=== PATIENT | male | born 1945 | race Caucasian/White ===

== ENCOUNTER 2024-03-12 10:27 | Observation (INO) | payer MEDICARE, SELFPAY ==
--- NOTE | ~2024-03-12 | CT_ITS ---
EXAMINATION: CT ABDOMEN AND PELVIS WITHOUT CONTRAST CLINICAL INFORMATION: Flank pain, hematuria. COMPARISON: None available. TECHNIQUE: Multidetector volumetric imaging was performed from the superior aspect of the liver through the pubic symphysis. Sagittal and coronal reformatted images were obtained on the technologist's workstation. This CT examination was performed using dose optimization techniques as appropriate, variously including the following: *Automated exposure control *Adjustment of mA and/or kV according to patient size (this includes techniques or standardized protocols for targeted exams where dose is matched to indication/reason for exam; i.e. extremities or head) *Use of iterative reconstruction technique DLP: 1280 mL mGy-cm FINDINGS: The lack of intravenous contrast limits evaluation of the solid visceral organs including the liver, spleen, pancreas, and kidneys. LUNG BASES: No focal consolidation or pleural effusion. LIVER, GALLBLADDER, AND BILIARY TREE: The liver is normal in size, shape, and attenuation. No focal hepatic lesion or biliary ductal dilatation is present. The gallbladder is unremarkable with no evidence of radiopaque gallstones, gallbladder wall thickening, or obvious pericholecystic inflammatory changes. PANCREAS: Unremarkable. SPLEEN: Unremarkable. ADRENAL GLANDS: Unremarkable. KIDNEYS AND URETERS: Nonobstructive bilateral renal calculi measuring up to 3 mm on the right kidney and up to 7 mm on the left kidney. No hydronephrosis. No perinephric fat stranding. Benign appearing simple fluid attenuating cyst in the upper right kidney measuring 2.2 cm, for which no imaging follow-up is recommended. BLADDER: Hyperdense filling defects layering in the posterior urinary bladder for example measuring 4.2 x 1.6 cm on axial image 73 series 5. No significant perivesical fat stranding. GASTROINTESTINAL TRACT: Nonspecific focal masslike abnormality in the rectosigmoid junction (5:66). Trace hiatal hernia. The stomach and small bowel are nondilated. Colonic diverticulosis. No significant inflammatory changes to suspect acute appendicitis or diverticulitis. The cecum is displaced superiorly without evidence of volvulus. No evidence of bowel obstruction. ABDOMINAL WALL: Small fat-containing periumbilical hernias. LYMPH NODES: Nonspecific prominent posterior lower periesophageal lymph node measuring 0.6 cm (5:14). No lymphadenopathy by size criteria. VASCULAR: Moderate to severe atherosclerotic disease. Normal caliber of the abdominal aorta. PELVIC VISCERA: Unremarkable. OSSEOUS STRUCTURES: Grade 1 anterolisthesis at L5-S1. [id number] multilevel degenerative changes of the spine. No acute or aggressive appearing osseous findings. CT/CT abdomen pelvis wo IV con IMPRESSION: 1. Nonobstructive bilateral renal calculi. 2. Hyperdense filling defect in the posterior urinary bladder could represent blood clots or solid mass/neoplasm, incompletely characterize in the absence of intravenous contrast. Correlate with urinalysis and follow-up with cystoscopy. 3. Masslike abnormality in the rectosigmoid junction, suspicious for underlying neoplasm. Recommend evaluation with colonoscopy. 4. Diverticulosis but no evidence of acute diverticulitis. This critical result was discussed with Donaldo Sher at 03/12/2024 3:32 PM DRYWALL FINISHER and it was ascertained that the content and urgency of the report was understood at the time of direct communication. Electronically signed by: Cherelle Garcia MD 03/12/2024 04:36 PM [facility]
--- NOTE | ~2024-03-12 | CT_ITS ---
EXAMINATION: CT HEAD WITH CONTRAST CLINICAL INFORMATION: History of prostate cancer. Concern for metastatic disease. COMPARISON: None available. TECHNIQUE: Contiguous axial imaging was performed from the skull base to vertex following the administration of 85 mL of Omnipaque [address] examination was performed using dose optimization techniques as appropriate, variously including the following: *Automated exposure control *Adjustment of mA and/or kV according to patient size (this includes techniques or standardized protocols for targeted exams where dose is matched to indication/reason for exam; i.e. extremities or head) *Use of iterative reconstruction technique DLP: 1286 mGy-cm FINDINGS: There is no acute intracranial hemorrhage. There is no evidence of acute/subacute cerebral or cerebellar infarction. There is mild microvascular ischemic change. 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 There is no mass effect or midline shift. There is no extra-axial fluid collection. There is no pathologic enhancement. The ventricles are normal in size. The orbits are symmetric and within normal limits. The calvarium is intact. The visualized paranasal sinuses and mastoid air cells are clear. CT/CT head/brain w IV con IMPRESSION: No evidence of intracranial metastatic disease. If there is continued clinical concern for brain metastasis, contrast-enhanced brain MRI is recommended. Mild microvascular ischemic change. Electronically signed by: Donaldo Lopez DO 03/12/2024 04:24 PM [facility]
[2024-03-12 10:47] VITALS: BP 147/80; PULSE 91; RESP 20; TEMP 36.3; O2SAT 97; BMI 29.4
[2024-03-12 11:08] LABS: MANUAL DIFF FLAG NO
[2024-03-12 11:11] LABS: Basophils Percent Auto 0.7 % (0-2); Eosinophils Absolute Auto 0.2 X10*3/uL (0.0-0.4); Hematocrit 42.1 % (42.0-52.0); Hemoglobin 14.6 g/dl (14.0-18.0); Lymphocytes Absolute Auto 1.1 X10*3/uL (1.2-4.9); Lymphocytes Percent Auto 36.2 % (20-40); Mean Corpuscular HGB Conc 34.7 g/dl (31.0-36.0); Mean Corpuscular Hemoglobin 32.9 pg (27.0-33.0); Mean Corpuscular Volume 94.8 fL (80.0-98.0); Mean Platelet Volume 9.1 fL (9.4-12.4); Monocytes Absolute Auto 0.6 X10*3/uL (0.1-1.2); Monocytes Percent Auto 19.5 % (2-11); Neutrophils Absolute Auto 1.1 x10*3/uL (2.0-8.3); Neutrophils Percent Auto 36.6 % (45-73); Platelet Count 142 X10*3/uL (160-400); Red Blood Count 4.44 X10*6/uL (4.60-5.80); Red Cell Distribution Width 13.3 % (11.0-16.0)
[2024-03-12 11:29] LABS: Anion Gap 16 (12-20); Blood Urea Nitrogen 22 mg/dL (9-16); Calcium 9.4 mg/dL (8.4-10.2); Carbon Dioxide 26 mmol/L (22-29); Chloride 105 mmol/L (96-108); Creatinine Clr Calc Pharmacy 70.2; Estimated Glomerular Filt Rate > 60; Glucose Random 110 mg/dL (60-115); Sodium 143 mmol/L (135-145)
--- NOTE | 2024-03-12 13:44 | ED_ITS ---
HPI - Male Genitourinary General Chief complaint: Urogenital-Male Stated complaint: Blood in urine Time Seen by Provider: 03/12/24 13:42 Source: patient, family and old records reviewed Mode of arrival: ambulatory Limitations: no limitations History of Present Illness ED Provider: GARIAM INFANTE Narrative: 78 yo male with PMH of prostate cancer currently off oral chemo medications x 3 months, last XRT in July not on blood thinners here with c/o blood from meatus and clots. No trauma noted, some mild back pain. He did strain in waiting room sounds like he passed a clot and now the urine is more clear. He is due for CT scans with [facility] today at 5pm to rule out brain mets. He has no pain at this time MD Complaint: other (hematuria) Onset (ago): hour(s) (7am) Duration: intermittent Location: penis Radiation: penis Severity: mild Relieving factors: urination Exacerbating factors: none Associated symptoms: Reports denies other symptoms Related Data Allergies Allergy/AdvReac Type Severity Reaction Status Date / Time No Known Allergies Allergy Verified 03/12/24 10:49 [No Known Allergies*] Review of Systems 2 Review of Systems: Constitutional : No Fever, No Chills, No Fatigue ENT/Mouth : No sore throat, No Rhinorrhea Eyes: No Eye Pain, No Swelling, No Redness Cardiovascular : No Chest Pain, No SOB, No Dyspnea on Exertion Respiratory : No Cough, No Sputum Gastrointestinal : No Nausea, No Vomiting, No Diarrhea, No abdominal Pain Genitourinary : No Dysuria, No Urinary Frequency, pos Hematuria, Musculoskeletal : No joint pain, No Myalgias, No Joint Swelling, pos back pain Skin : No Skin Lesions, No rash Neuro : No Weakness, No Numbness, No Dizziness, no Headache Psych : No Anxiety/Panic, No Depression Heme/Lymph: No Bruising, No Bleeding,No Lymphadenopathy Endocrine : No Polyuria, No Polydipsia All other systems reviewed and are negative PMFSH Past Medical History Attestation statement: The following information was validated with the patient. Source: old records reviewed Medical History Prostate cancer Social History Social History (Updated 03/12/24 @ 13:59 by Neelam Sahni DO) Patient Tobacco Use Status: Never used Tobacco Smoked in Last 30 Days: No Use of substances other than those prescribed or required for medical reasons: No Advance Directives: No Advance Directives Information Provided: Yes Physical Exam 2 Vital Signs: Vital Signs: Last Vital Signs Temp 97.9 F 03/12/24 15:22 Pulse 61 03/12/24 15:22 Resp 17 03/12/24 15:22 BP 138/72 03/12/24 15:22 Pulse Ox 98 03/12/24 15:22 O2 Del Method Room Air 03/12/24 15:22 BMI result Body Mass Index 29.4 Appearance: Alert. Oriented X3. No acute distress. Eyes: Pupils equal, round and reactive to light. ENT: Pharynx normal. Neck: Normal inspection. Neck supple. CVS: Normal heart rate and rhythm. Pulses normal. Respiratory: No respiratory distress. Breath sounds normal. Abdomen: Soft and nontender. Skin: Skin warm and dry. Normal skin color. Normal skin turgor. Extremities: No lower extremity edema. No calf ttp Neuro: Oriented X 3. No motor deficit. No sensory deficit. Course Course Course Narrative: call to [facility] radiology department CT head with IV contrast due to day at 5pm at [facility] for brain mets Reevaluation(s) Reevaluation #1: bladder scan 26 Reevaluation #2: signed out to Dr. Munoz pending CT scans and labs Medications Administered Discontinued Medications Generic Name Dose Route Start Last Admin Trade Name Freq PRN Reason Stop Dose Admin Iohexol 100 ml 03/12/24 14:49 03/12/24 14:49 Iohexol 350 Mg/Ml 100 Ml Infus..Btl IV 03/12/24 14:50 85 ml ONCE ONE Administration Lidocaine HCl 10 ml 03/12/24 13:43 03/12/24 14:54 Lidocaine Hcl 2 % Urojet 10 Ml Jel.Pf.Loyda TOPICAL 03/12/24 13:44 Not Given ONCE ONE Medical Decision Making Medical Decision Making MDM Narrative: 78 yo male with PMH of prostate cancer currently off oral chemo medications x 3 months now this AM has hematuria and clots with mild back pain at this time will obtain labs, UA, possible canseco with CBI, CT scan for mass/hemorrhage/cyst/stone. Due for CT head for possible brain mets through oncologist will order that today as well Differential Diagnosis Differential Diagnoses: The differential diagnosis associated with the presentation includes mass/hemorrhage/cyst/stone. Admission/Observation Consideration of admission/observation: Escalation of care including admission/observation considered Lab Data MDM Lab Attestation statement: I reviewed the patient's lab results. 03/12/24 11:04 03/12/24 11:04 Labs: Lab Results 03/12/24 03/12/24 Range/Units 11:04 13:52 WBC 3.0 L (4.8-10.8) X10*3/uL RBC 4.44 L (4.60-5.80) X10*6/uL Hgb 14.6 (14.0-18.0) g/dl Hct 42.1 (42.0-52.0) % MCV 94.8 (80.0-98.0) fL MCH 32.9 (27.0-33.0) pg MCHC 34.7 (31.0-36.0) g/dl RDW 13.3 (11.0-16.0) % Plt Count 142 L (160-400) X10*3/uL MPV 9.1 L (9.4-12.4) fL Immature Gran % (Auto) 0.0 (0.0-0.4) % Neut % (Auto) 36.6 L (45-73) % Lymph % (Auto) 36.2 (20-40) % [place] % (Auto) 19.5 H (2-11) % Eos % (Auto) 7.0 H (0-4) % Baso % (Auto) 0.7 (0-2) % Lymph # (Auto) 1.1 L (1.2-4.9) X10*3/uL [place] # (Auto) 0.6 (0.1-1.2) X10*3/uL Eos # (Auto) 0.2 (0.0-0.4) X10*3/uL Baso # (Auto) 0.0 (0.0-0.2) X10*3/uL Abs Immat Gran (auto) 0.00 (0.00-0.03) X10*3/uL Absolute Neuts (auto) 1.1 L (2.0-8.3) x10*3/uL Absolute Nucleated RBC 0.000 (0.0-0.012) X10*3/uL Nucleated RBC % (auto) 0.0 (0.0-0.2) /100WBC PT 11.7 (10.9-12.4) SEC INR 1.0 (0.9-1.1) Sodium 143 (135-145) mmol/L Potassium 4.0 (3.3-5.1) mmol/L Chloride 105 (96-108) mmol/L Carbon Dioxide 26 (22-29) mmol/L Anion Gap 16 (12-20) BUN 22 H (9-16) mg/dL Creatinine 0.86 (0.5-1.4) mg/dL Estim Creat Clear Calc 70.2 Estimated GFR > 60 Random Glucose 110 (60-115) mg/dL Calcium 9.4 (8.4-10.2) mg/dL Total Bilirubin 0.4 (0.0-1.0) mg/dL Direct Bilirubin 0.1 (0.0-0.5) mg/dL AST 46 H (5-37) U/L ALT 45 H (0-40) U/L Alkaline Phosphatase 98 (39-117) U/L Total Protein 7.0 (6.5-8.0) g/dL Albumin 3.7 (3.5-5.0) g/dL Independent Interpretation I performed an independent interpretation of an: CT Scan Radiology Impression Discussion of test interpretation with radiology: I have reviewed the radiologist's reading. Independent Historian Clinical information obtained from an independent historian. History obtained from or confirmed by: Spouse Discharge Plan Discharge Clinical Impression: Gross hematuria Patient Disposition: Still a Patient Instructions: Hematuria (ED) Print Language: Com[place]an
[2024-03-12 13:51] LABS: Alanine Aminotransferase 45 U/L (0-40); Albumin Level 3.7 g/dL (3.5-5.0); Alkaline Phosphatase 98 U/L (39-117); Aspartate Amino Transferase 46 U/L (5-37); Bilirubin Direct 0.1 mg/dL (0.0-0.5); Bilirubin Total 0.4 mg/dL (0.0-1.0)
[2024-03-12 14:03] LABS: Prothrombin Time 11.7 SEC (10.9-12.4)
[2024-03-12] MEDS: iohexoL 350 MG/ML 100 ML INFUS..BTL IV (14:49)
--- NOTE | 2024-03-12 14:54 | PC.NURSE ---
re:urojet- not given as pt only has 26ml in bladder per scan
[2024-03-12 15:22] VITALS: BP 138/72; PULSE 61; RESP 17; TEMP 36.6; O2SAT 98
--- NOTE | 2024-03-12 15:55 | PC.NURSE ---
pt able to void independently- was able to fill specimetn cup- gross hematuria noted- MD sahni aware. pt sts that there were clots present while voiding- UA sent, MD Sahni notified,pt to be moved to ED 20 for further eval and tx. Report given to Danny Herrera RN
[2024-03-12 16:04] LABS: Appearance Urine Clear; Glucose Urine UA Negative (Negative); UMIC TRIGGER UACC YES; Urine Blood Large (3+) (Negative)
[2024-03-12 16:08] LABS: Urine Protein 100 (2+) mg/dL (Neg-Trace)
[2024-03-12 16:09] LABS: Color Urine Yellow
[2024-03-12 16:10] LABS: Nitrite Urine Negative (Negative); Urine Ketones Negative (Negative)
[2024-03-12 16:26] LABS: Bacteria Urine None Seen (None Seen); Hyaline Casts Urine 0-2 /LPF (0-2); RBC Urine >20 /HPF (0-2); Squamous Epithelial Cell Urine 0-2 /HPF (0-2)
[2024-03-12 16:27] LABS: Leukocyte Esterase Urine Negative (Negative); UACC Culture Trigger YES
[2024-03-12 18:15] VITALS: PULSE 68; RESP 17
--- NOTE | 2024-03-12 18:30 | PC.NURSE ---
Patient continuous irrigation started. Bag 1
--- NOTE | 2024-03-12 19:08 | PC.NURSE ---
continous irrgation bag 2 started. Output small clots and fruit punch.
--- NOTE | 2024-03-12 19:39 | PHA.MEDREC ---
Addendum entered by Shanon Thapa RPh 03/12/24 20:03: Med rec was reviewed by [facility]. Original Note: Pharmacy Consult ? Medication Reconciliation Pharmacy has completed the medication reconciliation. Spoke to patient to confirm med list. patient states he is only on Venlafaxine 112.5 mg ( 3 x 37.5 mg ) daily.
--- NOTE | 2024-03-12 20:19 | P.HPHOSP_ITS ---
History of Present Illness Date of Service: 03/12/24 Chief Complaint: Hematuria A 78 years old male with PMH of prostate CA post chemo and radiation last in July 2023 at [facility] presenting with acute onset hematuria with clots this morning. The patient reports no previous history of hematuria during his treatment period. this morning he went to the bathroom and found that his urine is bloody with clots. No chest pain, palpitations, SOB, nausea, vomiting, diarrhea or dysuria, fever or chills. He had recent bone scan and CT scans which were negative for any active cancer in 01/2024 according to family. In ED a 3-way cath placed and he was started on CBI. CT scan concerning for possible Rectosigmoid mass which is new in comparison with what reported in 01/27. ' Admitted for further evaluation and treatment. Review of Systems 2 Review of Systems: No fever, chills or weakness No chest pain, palpitation No shortness of breath or coughing No abdominal pain, nausea or vomiting having hematuria with clots No rash PMFSH Medical History Prostate cancer Social History Patient Tobacco Use Status: Never used Tobacco Smoked in Last 30 Days: No Use of substances other than those prescribed or required for medical reasons: No Advance Directives: No Advance Directives Information Provided: Yes Meds Allergies Allergy/AdvReac Type Severity Reaction Status Date / Time No Known Allergies Allergy Verified 03/12/24 10:49 [No Known Allergies*] Active Medications: Current Medications Acetaminophen (Acetaminophen 325 Mg Tablet) 650 mg PO Q6H PRN PRN Reason: Pain, Mild (Pain Scale 1-3), fever or headache Calcium Carbonate (Calcium Carbonate 750 Mg Tab.Chew) 750 mg PO Q4H PRN PRN Reason: Heartburn Magnesium Hydroxide (Milk Of Magnesia 30 Ml Oral.Susp) 30 ml PO DAILY PRN PRN Reason: Constipation Melatonin (Melatonin 3 Mg Tablet) 6 mg PO BEDTIME PRN PRN Reason: Insomnia Ondansetron HCl (Ondansetron Hcl 4 Mg/2 Ml Vial) 4 mg IVPUSH Q8H PRN PRN Reason: Nausea and Vomiting Sodium Chloride (0.9 % Sodium Chloride Flush 3 Ml Syringe) 3 ml IVFLUSH QSHIFT ROZ Venlafaxine HCl (Venlafaxine Hcl Er 37.5 Mg Cap.Er.24h) 112.5 mg PO DAILY [facility] Home Medications ?Medication ?Instructions ?Recorded ?Confirmed ?Last Taken ?Type ascorbic acid (vitamin C) 500 mg 500 mg PO DAILY 03/12/24 03/12/24 03/12/24 History tablet (Vitamin C) multivitamin 1 tab PO DAILY 03/12/24 03/12/24 03/12/24 History venlafaxine 37.5 mg 112.5 mg PO DAILY 03/12/24 03/12/24 03/12/24 06:00 History capsule,extended release 24 hr Physical Exam 2 Vital Signs and Narrative: Vital Signs: Last Vital Signs Temp 97.9 F 03/12/24 15:22 Pulse 68 03/12/24 18:15 Resp 17 03/12/24 18:15 BP 138/72 03/12/24 15:22 Pulse Ox 98 03/12/24 15:22 O2 Del Method Room Air 03/12/24 18:15 BMI result Body Mass Index 29.4 Const: Other: Constitutional : Awake, interactive, not in distress Neck : Normal inspection, Supple Cardiovascular : RRR, no JVP, no lower extremity edema Respiratory : good bilateral air entry, no crackles, wheezes or rhonchi Gastrointestinal: soft, lax, Normal bowel sounds, Non tender Skin : Warm, Dry Urology: Catheter in place with clearing urine, pinkish with no clots. Neurological : Alert & oriented x3, No focal deficit Results Labs 03/12/24 11:04 03/12/24 11:04 Labs: Laboratory Results - last 24 hr 03/12/24 03/12/24 03/12/24 11:04 13:52 15:36 MCV 94.8 MCH 32.9 MCHC 34.7 RDW 13.3 Plt Count 142 L MPV 9.1 L Immature Gran % (Auto) 0.0 Neut % (Auto) 36.6 L Lymph % (Auto) 36.2 [place] % (Auto) 19.5 H Eos % (Auto) 7.0 H Baso % (Auto) 0.7 Lymph # (Auto) 1.1 L [place] # (Auto) 0.6 Eos # (Auto) 0.2 Baso # (Auto) 0.0 Abs Immat Gran (auto) 0.00 Absolute Neuts (auto) 1.1 L Absolute Nucleated RBC 0.000 Nucleated RBC % (auto) 0.0 PT 11.7 INR 1.0 Anion Gap 16 Estim Creat Clear Calc 70.2 Estimated GFR > 60 Random Glucose 110 Calcium 9.4 Total Bilirubin 0.4 Direct Bilirubin 0.1 AST 46 H ALT 45 H Alkaline Phosphatase 98 Total Protein 7.0 Albumin 3.7 Urine Color Yellow Urine Appearance Clear Urine pH 7.0 Ur Specific [place] 1.010 Urine Protein 100 (2+) H Urine Glucose (UA) Negative Urine Ketones Negative Urine Blood Large (3+) H Urine Nitrite Negative Ur Leukocyte Esterase Negative Urine RBC >20 H Urine WBC 6-10 Ur Squamous Epith Cells 0-2 Urine Bacteria None Seen Hyaline Casts 0-2 Imaging Radiologist's Impressions: Impressions Head CT 03/12/24 13:58 IMPRESSION: No evidence of intracranial metastatic disease. If there is continued clinical concern for brain metastasis, contrast-enhanced brain MRI is recommended. Mild microvascular ischemic change. Electronically signed by: Donaldo Lopez DO 03/12/2024 04:24 PM EST RP Abdomen/Pelvis CT 03/12/24 14:38 IMPRESSION: 1. Nonobstructive bilateral renal calculi. 2. Hyperdense filling defect in the posterior urinary bladder could represent blood clots or solid mass/neoplasm, incompletely characterize in the absence of intravenous contrast. Correlate with urinalysis and follow-up with cystoscopy. 3. Masslike abnormality in the rectosigmoid junction, suspicious for underlying neoplasm. Recommend evaluation with colonoscopy. 4. Diverticulosis but no evidence of acute diverticulitis. This critical result was discussed with Donaldo Sher at 03/12/2024 3:32 PM ROUGH RICE GRADER and it was ascertained that the content and urgency of the report was understood at the time of direct communication. Electronically signed by: Cherelle Garcia MD 03/12/2024 04:36 PM EST RP Assessment and Plan (1) Gross hematuria: Status: Acute Plan A 78 years old male with PMH of prostate CA post chemo and radiation last in July 2023 at [facility] presenting with acute onset hematuria with clots this morning. Acute Hematuria Bladder mass ? radiation hemorrhagic cystitis CT reporting Hyperdense filling defect in the posterior urinary bladder could represent blood clots or solid mass/neoplasm CBI for now Urology eval for cystoscopy Follow H&H Sigmoid mass It seems new , reported on CT scan, will need recent CT from 01/27 Get GI eval for evaluation might get Colonoscopy as outpatient as well. will need to check with DF DVT PPx SCDs Quality Stroke Does the patient have a stroke diagnosis?: No VTE Prior VTE?: No VTE Risk Level:: Medical - moderate - high VTE Device Contraindication: N/A - Device Ordered VTE Drug Contraindication: Treatment Not Indicated
[2024-03-12 20:28] VITALS: BP 107/74; PULSE 67; RESP 16; TEMP 36.7; O2SAT 97
[2024-03-12 21:17] VITALS: BP 147/68; PULSE 66; RESP 18; TEMP 36.2; O2SAT 96
[2024-03-12] MEDS: 0.9 % Sodium Chloride Flush 3 ML SYRINGE IVFLUSH (21:33)
[2024-03-13 03:24] VITALS: PULSE 65; RESP 14; TEMP 36.6; O2SAT 95
[2024-03-13 06:44] LABS: Basophils Percent Auto 0.7 % (0-2); Eosinophils Absolute Auto 0.2 X10*3/uL (0.0-0.4); Eosinophils Percent Auto 8.1 % (0-4); Hematocrit 39.3 % (42.0-52.0); Hemoglobin 13.3 g/dl (14.0-18.0); Imm Gran Abs Auto 0.01 X10*3/uL (0.00-0.03); Imm Gran Pct Auto 0.4 % (0.0-0.4); Lymphocytes Absolute Auto 0.7 X10*3/uL (1.2-4.9); Lymphocytes Percent Auto 25.4 % (20-40); MANUAL DIFF FLAG NO; Mean Corpuscular HGB Conc 33.8 g/dl (31.0-36.0); Mean Corpuscular Volume 94.5 fL (80.0-98.0); Mean Platelet Volume 9.5 fL (9.4-12.4); Monocytes Absolute Auto 0.5 X10*3/uL (0.1-1.2); Monocytes Percent Auto 17.3 % (2-11); Neutrophils Absolute Auto 1.4 x10*3/uL (2.0-8.3); Neutrophils Percent Auto 48.1 % (45-73); Platelet Count 145 X10*3/uL (160-400); Red Blood Count 4.16 X10*6/uL (4.60-5.80); Red Cell Distribution Width 13.2 % (11.0-16.0); White Blood Count 2.8 X10*3/uL (4.8-10.8)
[2024-03-13 06:54] LABS: Anion Gap 12 (12-20); Blood Urea Nitrogen 17 mg/dL (9-16); Calcium 8.5 mg/dL (8.4-10.2); Carbon Dioxide 28 mmol/L (22-29); Chloride 105 mmol/L (96-108); Creatinine Clr Calc Pharmacy 67.8; Estimated Glomerular Filt Rate > 60; Glucose Random 140 mg/dL (60-115); Potassium 3.6 mmol/L (3.3-5.1); Sodium 141 mmol/L (135-145)
[2024-03-13 07:50] VITALS: BP 125/73; PULSE 64; RESP 16; TEMP 36.9; O2SAT 96
[2024-03-13] MEDS: Venlafaxine HCl ER 37.5 MG CAP.ER.24H 112.5 MG PO (09:02)
[2024-03-13] MEDS: 0.9 % Sodium Chloride Flush 3 ML SYRINGE IVFLUSH ×2 (09:05→14:19)
--- NOTE | 2024-03-13 09:07 | P.CNUR_ITS ---
History of Present Illness Consult details Consult date: 03/13/24 Narrative: 78 yo male with PMH of prostate cancer s/p radical prostatectomy. status post chemo and radiation last in July 2023 at [facility] presenting with acute onset hematuria with clots this morning. The patient reports no previous history of hematuria during his treatment period. XRT in July. Gross Hematuria on CBI. Review of Systems 2 Review of Systems: Yes all other systems are reviewed and are negative Constitutional: Constitutional: Reports no additional constitutional complaints Eyes: Eyes: Reports no additional eye complaints ENT: Reports system reviewed and no additional complaints, except as documented Cardiovascular: Cardiovascular: Reports no additional cardiovascular complaints Respiratory: Respiratory: Reports no additional respiratory complaints Gastrointestinal: Gastrointestinal: Reports no additional gastrointestinal complaints Genitourinary: Genitourinary: Reports as per HPI Musculoskeletal: Musculoskeletal: Reports no additional musculoskeletal complaints Integumentary/Breasts: Skin/Breast: Reports system reviewed and no additional complaints, except as docu Neurologic: Reports system reviewed and no additional complaints, except as documented Psychiatric: Psychiatric: Reports no additional psychiatric complaints Endocrine: Endocrine: Reports no additional endocrine complaints Hematologic/Lymphatic: Hematologic/Lymphatic: Reports no additional hematologic/lymphatic complaints Allergic/Immunologic: Allergic/Immunologic: Reports no additional allergic/immunologic complaints [facility] Past Medical History Medical History (Updated 03/21/24 @ 00:03 by Gloira Lim) Prostate cancer Social History Social History Patient Tobacco Use Status: Never used Tobacco service: No Meds Allergies Allergy/AdvReac Type Severity Reaction Status Date / Time No Known Allergies Allergy Verified 03/20/24 14:19 [No Known Allergies*] Active Medications: Current Medications Acetaminophen (Acetaminophen 325 Mg Tablet) 650 mg PO Q6H PRN PRN Reason: Pain, Mild (Pain Scale 1-3), fever or headache Calcium Carbonate (Calcium Carbonate 750 Mg Tab.Chew) 750 mg PO Q4H PRN PRN Reason: Heartburn Magnesium Hydroxide (Milk Of Magnesia 30 Ml Oral.Susp) 30 ml PO DAILY PRN PRN Reason: Constipation Melatonin (Melatonin 3 Mg Tablet) 6 mg PO BEDTIME PRN PRN Reason: Insomnia Ondansetron HCl (Ondansetron Hcl 4 Mg/2 Ml Vial) 4 mg IVPUSH Q8H PRN PRN Reason: Nausea and Vomiting Sodium Chloride (0.9 % Sodium Chloride Flush 3 Ml Syringe) 3 ml IVFLUSH QSHIFT [facility] Last Admin: 03/13/24 09:05 Dose: 3 ml Venlafaxine HCl (Venlafaxine Hcl Er 37.5 Mg Cap.Er.24h) 112.5 mg PO DAILY [facility] Last Admin: 03/13/24 09:02 Dose: 112.5 mg Home Medications ?Medication ?Instructions ?Recorded ?Confirmed ?Last Taken ?Type ascorbic acid (vitamin C) 500 mg 500 mg PO DAILY 03/12/24 03/12/24 03/12/24 History tablet (Vitamin C) multivitamin 1 tab PO DAILY 03/12/24 03/12/24 03/12/24 History venlafaxine 37.5 mg 112.5 mg PO DAILY 03/12/24 03/12/24 03/12/24 06:00 History capsule,extended release 24 hr Physical Exam 2 Vital Signs: Vital Signs: Last Vital Signs Temp 98.5 F 03/13/24 07:50 Pulse 64 03/13/24 07:50 Resp 16 03/13/24 07:50 BP 125/73 03/13/24 07:50 Pulse Ox 96 03/13/24 07:50 O2 Del Method Room Air 03/13/24 07:50 BMI result Body Mass Index 29.4 Const: General: healthy appearing, no acute distress and well developed O rientation/consciousness: patient oriented x3 HEENT: Head: Yes normocephalic and Yes atraumatic Eyes: Conjunctivae: conjunctivae normal Neck: Neck: Yes normal visual inspection Chest: Chest palpation & inspection: normal inspection of the chest Resp: Effort & Inspection: normal respiratory effort Cardio: Rate: regular rate GI: Inspection: Yes normal to inspection Palpation (GI): Soft to palpation : Other: canseco - urine is clear on CBI Penis: normal penis Scrotum: scrotum normal Neuro: General: patient oriented x3 Extrem: General: No pedal edema Psych: Appearance: grossly normal Affect: normal affect Results Labs 03/13/24 05:46 03/13/24 05:46 Labs: Abnormal lab results 03/12/24 03/12/24 03/13/24 Range/Units 11:04 15:36 05:46 WBC 3.0 L 2.8 L (4.8-10.8) X10*3/uL RBC 4.44 L 4.16 L (4.60-5.80) X10*6/uL Hgb 13.3 L (14.0-18.0) g/dl Hct 39.3 L (42.0-52.0) % Plt Count 142 L 145 L (160-400) X10*3/uL MPV 9.1 L (9.4-12.4) fL Neut % (Auto) 36.6 L (45-73) % [place] % (Auto) 19.5 H 17.3 H (2-11) % Eos % (Auto) 7.0 H 8.1 H (0-4) % Lymph # (Auto) 1.1 L 0.7 L (1.2-4.9) X10*3/uL Absolute Neuts (auto) 1.1 L 1.4 L (2.0-8.3) x10*3/uL BUN 22 H 17 H (9-16) mg/dL Random Glucose 140 H (60-115) mg/dL AST 46 H (5-37) U/L ALT 45 H (0-40) U/L Urine Protein 100 (2+) H (Neg-Trace) mg/dL Urine Blood Large (3+) H (Negative) Urine RBC >20 H (0-2) /HPF Short CBC 03/12/24 03/13/24 Range/Units 11:04 05:46 WBC 3.0 L 2.8 L (4.8-10.8) X10*3/uL Hgb 14.6 13.3 L (14.0-18.0) g/dl Hct 42.1 39.3 L (42.0-52.0) % Plt Count 142 L 145 L (160-400) X10*3/uL BMP 03/12/24 03/13/24 11:04 05:46 Sodium 143 141 Potassium 4.0 3.6 Chloride 105 105 Carbon Dioxide 26 28 BUN 22 H 17 H Creatinine 0.86 0.89 Calcium 9.4 8.5 D Liver Function 03/12/24 Range/Units 11:04 Total Bilirubin 0.4 (0.0-1.0) mg/dL Direct Bilirubin 0.1 (0.0-0.5) mg/dL AST 46 H (5-37) U/L ALT 45 H (0-40) U/L Alkaline Phosphatase 98 (39-117) U/L Albumin 3.7 (3.5-5.0) g/dL Urine 03/12/24 Range/Units 15:36 Urine Color Yellow Urine Appearance Clear Urine pH 7.0 (5.0-9.0) Ur Specific [place] 1.010 (1.005-1.025) Urine Protein 100 (2+) H (Neg-Trace) mg/dL Urine Glucose (UA) Negative (Negative) mg/dL Imaging Abdomen CT scan report/results: report reviewed and image reviewed CT scan - pelvis: report reviewed and image reviewed Additional studies: Date of Service: 03/12/24 CT ABDOMEN AND PELVIS WITHOUT CONTRAST CLINICAL INFORMATION: Flank pain, hematuria. COMPARISON: None available. TECHNIQUE: Multidetector volumetric imaging was performed from the superior aspect of the liver through the pubic symphysis. Sagittal and coronal reformatted images were obtained on the technologist's workstation. This CT examination was performed using dose optimization techniques as appropriate, variously including the following: *Automated exposure control *Adjustment of mA and/or kV according to patient size (this includes techniques or standardized protocols for targeted exams where dose is matched to indication/reason for exam; i.e. extremities or head) *Use of iterative reconstruction technique DLP: 1280 mL mGy-cm FINDINGS: The lack of intravenous contrast limits evaluation of the solid visceral organs including the liver, spleen, pancreas, and kidneys. LUNG BASES: No focal consolidation or pleural effusion. LIVER, GALLBLADDER, AND BILIARY TREE: The liver is normal in size, shape, and attenuation. No focal hepatic lesion or biliary ductal dilatation is present. The gallbladder is unremarkable with no evidence of radiopaque gallstones, gallbladder wall thickening, or obvious pericholecystic inflammatory changes. PANCREAS: Unremarkable. SPLEEN: Unremarkable. ADRENAL GLANDS: Unremarkable. KIDNEYS AND URETERS: Nonobstructive bilateral renal calculi measuring up to 3 mm on the right kidney and up to 7 mm on the left kidney. No hydronephrosis. No perinephric fat stranding. Benign appearing simple fluid attenuating cyst in the upper right kidney measuring 2.2 cm, for which no imaging follow-up is recommended. BLADDER: Hyperdense filling defects layering in the posterior urinary bladder for example measuring 4.2 x 1.6 cm on axial image 73 series 5. No significant perivesical fat stranding. GASTROINTESTINAL TRACT: Nonspecific focal masslike abnormality in the rectosigmoid junction (5:66). Trace hiatal hernia. The stomach and small bowel are nondilated. Colonic diverticulosis. No significant inflammatory changes to suspect acute appendicitis or diverticulitis. The cecum is displaced superiorly without evidence of volvulus. No evidence of bowel obstruction. ABDOMINAL WALL: Small fat-containing periumbilical hernias. LYMPH NODES: Nonspecific prominent posterior lower periesophageal lymph node measuring 0.6 cm (5:14). No lymphadenopathy by size criteria. VASCULAR: Moderate to severe atherosclerotic disease. Normal caliber of the abdominal aorta. PELVIC VISCERA: Unremarkable. OSSEOUS STRUCTURES: Grade 1 anterolisthesis at L5-S1. [id number] multilevel degenerative changes of the spine. No acute or aggressive appearing osseous findings. IMPRESSION: 1. Nonobstructive bilateral renal calculi. 2. Hyperdense filling defect in the posterior urinary bladder could represent blood clots or solid mass/neoplasm, incompletely characterize in the absence of intravenous contrast. Correlate with urinalysis and follow-up with cystoscopy. 3. Masslike abnormality in the rectosigmoid junction, suspicious for underlying neoplasm. Recommend evaluation with colonoscopy. 4. Diverticulosis but no evidence of acute diverticulitis. Assessment and Plan (1) Bilateral kidney stones: Status: Acute (2) Prostate cancer: Status: Acute (3) Gross hematuria: Status: Acute Plan hematuria resolved with CBI out patient office cystoscopy Procedures Date of Service Date of Service: 04/07/24
--- NOTE | 2024-03-13 09:22 | MHC.CM.PN ---
Addendum entered by Karen Rendon RN 03/13/24 13:39: PATIENT MEDICALLY CLEARED FOR DC HOME SELF CARE VIA PRIVATE TRANSPORT. Original Note: [facility] DELIVERED. PATIENT LIVES IN A HOME W/ . FUNCTIONALLY INDEPENDENT. DENIES USE OF DME OR SERVICES. PCP SHAHAB ADAMS REPORTS HE HAS AN HCP LISTING HIS , [facility]RE[facility], [facility]. COPY REQUESTED. DP: GOAL IS HOME SELF CARE. TO TRANSPORT. CM WILL CONTINUE TO FOLLOW.
--- NOTE | 2024-03-13 09:22 | PM.GICN ---
History of Present Illness Data of Consult Service Date: 03/13/24 Requesting physician: Ren Vanegas Primary Care Provider: BRYAN Hartmann HPI Reason for consult: Rectosigmoid mass A 78 years old male with PMH of prostate CA originally diagnosed 14y ago s/p surgical resection with recurrence requiring radiation and chemo at [facility] presenting with acute onset hematuria with clots since yest morning. Pt and were seen at bedside. Reports sudden onset of bloody urine with clots yest AM without any abd pain, N,V, chills. Was seen recently in [facility] last month with no residual ca on imaging. He is currently on CBI. Urology has evaluated him. is also in communication with [facility] team. GI consulted for incidental finding of rectosigmoid mass like irregularity noted on non-contrast CT. Pt and report most recent scans in Jan were clean. His last colo was over 5 years ago. Pt himself is otherwise healthy, no abd pain, melena, hematochezia, unintentional weight loss. Review of Systems Review of Systems: Yes all other systems are reviewed and are negative [facility] Past Medical History Medical History (Updated 03/13/24 @ 18:53 by Eli Mathis MD) Prostate cancer Social History Social History Patient Tobacco Use Status: Never used Tobacco service: No Meds Allergies Allergy/AdvReac Type Severity Reaction Status Date / Time No Known Allergies Allergy Verified 03/12/24 10:49 [No Known Allergies*] Active Medications: Current Medications Acetaminophen (Acetaminophen 325 Mg Tablet) 650 mg PO Q6H PRN PRN Reason: Pain, Mild (Pain Scale 1-3), fever or headache Calcium Carbonate (Calcium Carbonate 750 Mg Tab.Chew) 750 mg PO Q4H PRN PRN Reason: Heartburn Magnesium Hydroxide (Milk Of Magnesia 30 Ml Oral.Susp) 30 ml PO DAILY PRN PRN Reason: Constipation Melatonin (Melatonin 3 Mg Tablet) 6 mg PO BEDTIME PRN PRN Reason: Insomnia Ondansetron HCl (Ondansetron Hcl 4 Mg/2 Ml Vial) 4 mg IVPUSH Q8H PRN PRN Reason: Nausea and Vomiting Sodium Chloride (0.9 % Sodium Chloride Flush 3 Ml Syringe) 3 ml IVFLUSH QSHIFT [facility] Last Admin: 03/13/24 09:05 Dose: 3 ml Venlafaxine HCl (Venlafaxine Hcl Er 37.5 Mg Cap.Er.24h) 112.5 mg PO DAILY [facility] Last Admin: 03/13/24 09:02 Dose: 112.5 mg Home Medications ?Medication ?Instructions ?Recorded ?Confirmed ?Last Taken ?Type ascorbic acid (vitamin C) 500 mg 500 mg PO DAILY 03/12/24 03/12/24 03/12/24 History tablet (Vitamin C) multivitamin 1 tab PO DAILY 03/12/24 03/12/24 03/12/24 History venlafaxine 37.5 mg 112.5 mg PO DAILY 03/12/24 03/12/24 03/12/24 06:00 History capsule,extended release 24 hr Physical Exam Vital Signs: Vital Signs: Last Vital Signs Temp 98.5 F 03/13/24 07:50 Pulse 64 03/13/24 07:50 Resp 16 03/13/24 07:50 BP 125/73 03/13/24 07:50 Pulse Ox 96 03/13/24 07:50 O2 Del Method Room Air 03/13/24 07:50 BMI result Body Mass Index 29.4 (pt was getting CBI changed so complete exam deferred) Nonicteric Abdomen soft, nondistended Alert and oriented x3, without focal deficits Results Labs 03/13/24 05:46 03/13/24 05:46 Labs: Short CBC 03/12/24 03/13/24 Range/Units 11:04 05:46 WBC 3.0 L 2.8 L (4.8-10.8) X10*3/uL Hgb 14.6 13.3 L (14.0-18.0) g/dl Hct 42.1 39.3 L (42.0-52.0) % Plt Count 142 L 145 L (160-400) X10*3/uL BMP 03/12/24 03/13/24 11:04 05:46 Sodium 143 141 Potassium 4.0 3.6 Chloride 105 105 Carbon Dioxide 26 28 BUN 22 H 17 H Creatinine 0.86 0.89 Calcium 9.4 8.5 D Liver Function 03/12/24 Range/Units 11:04 Total Bilirubin 0.4 (0.0-1.0) mg/dL Direct Bilirubin 0.1 (0.0-0.5) mg/dL AST 46 H (5-37) U/L ALT 45 H (0-40) U/L Alkaline Phosphatase 98 (39-117) U/L Albumin 3.7 (3.5-5.0) g/dL Urine 03/12/24 Range/Units 15:36 Urine Color Yellow Urine Appearance Clear Urine pH 7.0 (5.0-9.0) Ur Specific [place] 1.010 (1.005-1.025) Urine Protein 100 (2+) H (Neg-Trace) mg/dL Urine Glucose (UA) Negative (Negative) mg/dL Assessment and Plan (1) Mass of colon: Status: Acute (2) Gross hematuria: Status: Acute (3) Prostate cancer: Status: Acute Plan CT with question of rectosigmoid mass - without contrast has irregularity in that area. ? Radiation effect vs malignant mass bassam as recent dedicated imaging from last month was negative. Unfortunately unable to schedule flex sig today as pt not NPO. Tentatively on schedule for Saturday. Clear liquid diet Saturday with NPO post midnight for 03/16. UPDATE - pt will be getting discharged later today. would like to review with [facility] and call us if would like to yane endoscopic eval through our office vs in [place]. Office phone number provided. Procedures Date of Service Date of Service: 03/13/24
--- NOTE | 2024-03-13 09:51 | HO.PM.IMPN ---
Subjective Subjective Date of Service: 03/13/24 Interval History: hematuria resolved Physical Exam Vital Signs: Vital Signs: Last Vital Signs Temp 98.5 F 03/13/24 07:50 Pulse 64 03/13/24 07:50 Resp 16 03/13/24 07:50 BP 125/73 03/13/24 07:50 Pulse Ox 96 03/13/24 07:50 O2 Del Method Room Air 03/13/24 07:50 BMI result Body Mass Index 29.4 General: AO X 3, no acute distress Resp: CTA bilateral, no accessory muscles used CVS: S1,S2,RRR GI: soft, non tender, non distended Neuro: motor grossly intact, alert Psych: appropriate affect, appropriate insight Objective Data Active Medications Acetaminophen (Acetaminophen 325 Mg Tablet) 650 mg PO Q6H PRN PRN Reason: Pain, Mild (Pain Scale 1-3), fever or headache Calcium Carbonate (Calcium Carbonate 750 Mg Tab.Chew) 750 mg PO Q4H PRN PRN Reason: Heartburn Magnesium Hydroxide (Milk Of Magnesia 30 Ml Oral.Susp) 30 ml PO DAILY PRN PRN Reason: Constipation Melatonin (Melatonin 3 Mg Tablet) 6 mg PO BEDTIME PRN PRN Reason: Insomnia Ondansetron HCl (Ondansetron Hcl 4 Mg/2 Ml Vial) 4 mg IVPUSH Q8H PRN PRN Reason: Nausea and Vomiting Sodium Chloride (0.9 % Sodium Chloride Flush 3 Ml Syringe) 3 ml IVFLUSH QSHIFT [facility] Last Admin: 03/13/24 09:05 Dose: 3 ml Documented By: TJ Venlafaxine HCl (Venlafaxine Hcl Er 37.5 Mg Cap.Er.24h) 112.5 mg PO DAILY [facility] Last Admin: 03/13/24 09:02 Dose: 112.5 mg Documented By: TJ Labs 03/13/24 05:46 03/13/24 05:46 Labs: Laboratory Results - last 24 hr 03/12/24 03/12/24 03/12/24 11:04 13:52 15:36 MCV 94.8 MCH 32.9 MCHC 34.7 RDW 13.3 Plt Count 142 L MPV 9.1 L Immature Gran % (Auto) 0.0 Neut % (Auto) 36.6 L Lymph % (Auto) 36.2 [place] % (Auto) 19.5 H Eos % (Auto) 7.0 H Baso % (Auto) 0.7 Lymph # (Auto) 1.1 L [place] # (Auto) 0.6 Eos # (Auto) 0.2 Baso # (Auto) 0.0 Abs Immat Gran (auto) 0.00 Absolute Neuts (auto) 1.1 L Absolute Nucleated RBC 0.000 Nucleated RBC % (auto) 0.0 PT 11.7 INR 1.0 Anion Gap 16 Estim Creat Clear Calc 70.2 Estimated GFR > 60 Random Glucose 110 Calcium 9.4 Total Bilirubin 0.4 Direct Bilirubin 0.1 AST 46 H ALT 45 H Alkaline Phosphatase 98 Total Protein 7.0 Albumin 3.7 Urine Color Yellow Urine Appearance Clear Urine pH 7.0 Ur Specific [place] 1.010 Urine Protein 100 (2+) H Urine Glucose (UA) Negative Urine Ketones Negative Urine Blood Large (3+) H Urine Nitrite Negative Ur Leukocyte Esterase Negative Urine RBC >20 H Urine WBC 6-10 Ur Squamous Epith Cells 0-2 Urine Bacteria None Seen Hyaline Casts 0-2 03/13/24 05:46 MCV 94.5 MCH 32.0 MCHC 33.8 RDW 13.2 Plt Count 145 L MPV 9.5 Immature Gran % (Auto) 0.4 Neut % (Auto) 48.1 Lymph % (Auto) 25.4 [place] % (Auto) 17.3 H Eos % (Auto) 8.1 H Baso % (Auto) 0.7 Lymph # (Auto) 0.7 L [place] # (Auto) 0.5 Eos # (Auto) 0.2 Baso # (Auto) 0.0 Abs Immat Gran (auto) 0.01 Absolute Neuts (auto) 1.4 L Absolute Nucleated RBC 0.000 Nucleated RBC % (auto) 0.0 PT INR Anion Gap 12 Estim Creat Clear Calc 67.8 Estimated GFR > 60 Random Glucose 140 H Calcium 8.5 D Total Bilirubin Direct Bilirubin AST ALT Alkaline Phosphatase Total Protein Albumin Urine Color Urine Appearance Urine pH Ur Specific [place] Urine Protein Urine Glucose (UA) Urine Ketones Urine Blood Urine Nitrite Ur Leukocyte Esterase Urine RBC Urine WBC Ur Squamous Epith Cells Urine Bacteria Hyaline Casts Assessment and Plan (1) Mass of colon: Status: Acute (2) Gross hematuria: Status: Acute Plan 78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, presented with hematuria, CT found to have filling defect in bladder, and masslike lesion in rectosigmoid Acute hematuria with concern for bladder mass versus radiation cystitis CBI clearing, follow up Urology Rectosigmoid mass Plan for flex sig on Saturday or outpatient DVT prophylaxis with mechanical boots due to hematuria Full code reason for continued hospitalization: Currently on CBI Quality Stroke Does the patient have a stroke diagnosis?: No VTE Prior VTE?: No VTE Risk Level:: Medical - moderate - high VTE Device Contraindication: N/A - Device Ordered VTE Drug Contraindication: Treatment Not Indicated
--- NOTE | 2024-03-13 13:28 | PM.DS ---
DS: Providers Provider Date of Service: 03/13/24 Date of admission: 03/12/24 20:15 Date of discharge: 03/13/24 Primary care physician: BRYAN Hartmann Consults: 03/12/24 20:15 Consult to Urology Routine Consulting Provider: [facility] Reason for consultation: Hematuria, Hx of radiation therapy and prostate CA 03/12/24 20:43 Consult to Gastroenterology Routine Consulting Provider: Eli Mathis Reason for consultation: Rectosigmoid mass , Hx of prostate CA, Hematuria DS: Diagnosis Discharge Diagnosis (1) Mass of colon: Status: Acute (2) Gross hematuria: Status: Acute DS: Summary Hospital Course Hospital Course: from initial hpi: 78 years old male with PMH of prostate CA post chemo and radiation last in July 2023 at [facility] presenting with acute onset hematuria with clots this morning. The patient reports no previous history of hematuria during his treatment period. this morning he went to the bathroom and found that his urine is bloody with clots. No chest pain, palpitations, SOB, nausea, vomiting, diarrhea or dysuria, fever or chills. He had recent bone scan and CT scans which were negative for any active cancer in 01/2024 according to family. In ED a 3-way cath placed and he was started on CBI. CT scan concerning for possible Rectosigmoid mass which is new in comparison with what reported in 01/27. ' Admitted for further evaluation and treatment. hospital course: Patient was admitted for acute hematuria with concern for bladder mass versus radiation cystitis. With CPI his hematuria resolved. He was seen by urology recommended outpatient follow-up for possible cystoscopy. With incidental finding of rectosigmoid mass on CT scan patient was seen by Gastroenterology recommended flexible sigmoidoscopy which will be done as outpatient. Time Attestation Discharge Coordination Time (in mins): 34 Quality: Safe Use of Opioids Does Pt have an Active Cancer Diagnosis on the Problem List?: No Quality: Stroke Does the patient have a stroke diagnosis?: No Physical Exam Vital Signs: Vital Signs: Last Vital Signs Temp 98.5 F 03/13/24 07:50 Pulse 64 03/13/24 07:50 Resp 16 03/13/24 07:50 BP 125/73 03/13/24 07:50 Pulse Ox 96 03/13/24 07:50 O2 Del Method Room Air 11/08/24 07:50 BMI result Body Mass Index 29.4 General: AO X 3, no acute distress Resp: CTA bilateral, no accessory muscles used CVS: S1,S2,RRR GI: soft, non tender, non distended Neuro: motor grossly intact, alert Psych: appropriate affect, appropriate insight DS: Data Data Completed and Pending Labs on day of discharge: Laboratory Results - last 24 hr 03/12/24 03/12/24 03/12/24 11:04 13:52 15:36 WBC RBC Hgb Hct MCV MCH MCHC RDW Plt Count MPV Immature Gran % (Auto) Neut % (Auto) Lymph % (Auto) [place] % (Auto) Eos % (Auto) Baso % (Auto) Lymph # (Auto) [place] # (Auto) Eos # (Auto) Baso # (Auto) Abs Immat Gran (auto) Absolute Neuts (auto) Absolute Nucleated RBC Nucleated RBC % (auto) PT 11.7 INR 1.0 Sodium Potassium Chloride Carbon Dioxide Anion Gap BUN Creatinine Estim Creat Clear Calc Estimated GFR Random Glucose Calcium Total Bilirubin 0.4 Direct Bilirubin 0.1 AST 46 H ALT 45 H Alkaline Phosphatase 98 Total Protein 7.0 Albumin 3.7 Urine Color Yellow Urine Appearance Clear Urine pH 7.0 Ur Specific [place] 1.010 Urine Protein 100 (2+) H Urine Glucose (UA) Negative Urine Ketones Negative Urine Blood Large (3+) H Urine Nitrite Negative Ur Leukocyte Esterase Negative Urine RBC >20 H Urine WBC 6-10 Ur Squamous Epith Cells 0-2 Urine Bacteria None Seen Hyaline Casts 0-2 03/13/24 05:46 WBC 2.8 L RBC 4.16 L Hgb 13.3 L Hct 39.3 L MCV 94.5 MCH 32.0 MCHC 33.8 RDW 13.2 Plt Count 145 L MPV 9.5 Immature Gran % (Auto) 0.4 Neut % (Auto) 48.1 Lymph % (Auto) 25.4 [place] % (Auto) 17.3 H Eos % (Auto) 8.1 H Baso % (Auto) 0.7 Lymph # (Auto) 0.7 L [place] # (Auto) 0.5 Eos # (Auto) 0.2 Baso # (Auto) 0.0 Abs Immat Gran (auto) 0.01 Absolute Neuts (auto) 1.4 L Absolute Nucleated RBC 0.000 Nucleated RBC % (auto) 0.0 PT INR Sodium 141 Potassium 3.6 Chloride 105 Carbon Dioxide 28 Anion Gap 12 BUN 17 H Creatinine 0.89 Estim Creat Clear Calc 67.8 Estimated GFR > 60 Random Glucose 140 H Calcium 8.5 D Total Bilirubin Direct Bilirubin AST ALT Alkaline Phosphatase Total Protein Albumin Urine Color Urine Appearance Urine pH Ur Specific [place] Urine Protein Urine Glucose (UA) Urine Ketones Urine Blood Urine Nitrite Ur Leukocyte Esterase Urine RBC Urine WBC Ur Squamous Epith Cells Urine Bacteria Hyaline Casts Preliminary micro results at discharge 03/12/24 Unknown Urine Culture - Preliminary Urine clean catch - Clean Catch Midstream No growth to date. Discharge Plan Discharge Anticipated Discharge Date/Time: 03/13/24 13:24 Patient Disposition: Home, Self-Care Discharge Diagnosis: hematuria Referrals: Jason Bey MD [Physician] - 1 Week Donaldo Sher PA [Primary Care Provider] - 1 Week Eli Mathis MD [Physician] - 1 Week Discharge Medications: Continued venlafaxine 37.5 mg capsule,extended release 24hr 112.5 mg PO DAILY multivitamin Tablet 1 tab PO DAILY ascorbic acid (vitamin C) [Vitamin C] 500 mg Tablet 500 mg PO DAILY Discharge Orders: Discharge Order (Routine); Ordered 03/13/24 Ordered By: Wang German Diet: Advance to usual diet Activity on Discharge: As tolerated Stand Alone Forms: Patient Portal Discharge page Print Language: Persian Care Plan Goals: work up hematuria and rectosigmoid mass Health Concerns: hematuria, rectosigmoid mass Plan of Treatment: follow up with urology for cystoscopy and with GI for flexible sigmoidoscopy Assessment: see above Patient Instructions: Hematuria (ED)
[2024-03-13] MEDS: Morphine Sulfate 2 MG/ML CARTRIDGE IVPUSH (14:25)
--- NOTE | 2024-03-13 16:08 | PC.NURSE ---
1330- This RN in to remove canseco catheter per MD order. 15ml removed from balloon, resistence felt when attempt to pull catheter out. Position attempts made with no success. Canseco irrigated, no clots removed. Urine remains clear yellow. Patient tolerated fair, alot of discomfort with manipulation and afterwards. Feels urge to urinate. Dr. Bey made aware, to come assess shortly. Dr. German made aware, pain meds ordered and given per EMAR. Patient verbalized understanding of plan. 1500- Dr. Bey at bedside and able to remove canseco catheter with little issue. Patient encouraged to drink fluid and attempt to avoid shortly. Patient verbalized understanding, all needs met.
[2024-03-13 17:01] VITALS: BP 121/74; PULSE 65; RESP 18; TEMP 36.1; O2SAT 97
[2024-03-13] MEDS: ondansetron HCL 4 MG/2 ML VIAL IVPUSH (18:18)
== END 2024-03-13 20:39 | disposition home or self-care (01) ==
LOC: HO.ED 19:27 → HO.EDOVER 20:26 → HO.S3 20:35
PROVIDERS: Emergency Medicine; Physician Assistant; Admitting Provider Student in an Organized Health Care Education/Training Program; Emergency Provider Internal Medicine; PCP Physician Assistant Medical; Visit Provider Internal Medicine
DX: R31.0 Gross hematuria (principal); K63.89 Other specified diseases of intestine; R93.5 Abnormal findings on diagnostic imaging of other abdominal regions, including retroperitoneum; R10.9 Unspecified abdominal pain; N20.0 Calculus of kidney; K42.9 Umbilical hernia without obstruction or gangrene; Z85.46 Personal history of malignant neoplasm of prostate; Z79.899 Other long term (current) drug therapy
CPT/HCPCS: 36415; 70460; 74176; 80048; 80076; 81001; 81003; 85025; 85610; 87086; 96374; 96375; 99221; 99285; C1758; J2270; J2405; Q9967

== ENCOUNTER → 2024-03-12 20:15 | Outpatient (BNV) | payer MEDICARE, SELFPAY | PROVIDERS: Admitting Provider Student in an Organized Health Care Education/Training Program; Emergency Provider Internal Medicine; PCP Physician Assistant Medical; Visit Provider Urology | DX: N20.0 Calculus of kidney (principal); R31.0 Gross hematuria; C61 Malignant neoplasm of prostate | CPT/HCPCS: 99222 ==

== ENCOUNTER → 2024-03-12 20:15 | Outpatient (BNV) | payer MEDICARE, SELFPAY | PROVIDERS: Admitting Provider Student in an Organized Health Care Education/Training Program; Emergency Provider Internal Medicine; PCP Physician Assistant Medical; Visit Provider Student in an Organized Health Care Education/Training Program | DX: R31.0 Gross hematuria (principal); Z85.46 Personal history of malignant neoplasm of prostate; K63.89 Other specified diseases of intestine | CPT/HCPCS: 99223; 99239; 99499 ==

== ENCOUNTER → 2024-03-12 20:15 | Outpatient (BNV) | payer MEDICARE, SELFPAY | PROVIDERS: Admitting Provider Student in an Organized Health Care Education/Training Program; Emergency Provider Internal Medicine; PCP Physician Assistant Medical; Visit Provider Internal Medicine | DX: K63.89 Other specified diseases of intestine (principal); R31.0 Gross hematuria; C61 Malignant neoplasm of prostate | CPT/HCPCS: 99222 ==

== ENCOUNTER 2024-03-17 14:26 | Emergency (ER) | payer MEDICARE, SELFPAY ==
--- NOTE | 2024-03-17 14:53 | PC.NURSE ---
No call to name at triage at 14:53.
== END 2024-03-17 16:19 | disposition left against medical advice (07) ==
PROVIDERS: Emergency Provider Emergency Medicine; PCP Physician Assistant Medical
DX: Z53.21 Procedure and treatment not carried out due to patient leaving prior to being seen by health care provider (principal)

== ENCOUNTER 2024-03-20 14:16 | Outpatient (AMB) | payer MEDICARE, SELFPAY ==
--- NOTE | 2024-03-20 14:18 | MHC.OFFVIS ---
Intake Visit Reasons: ER follow up/ Cysto Intake Note: Patient is present for ER F/U CYSTO Urology Medication:NONE Antibiotic Allergy:NONE Blood Thinner:NONE Stitching Department Supervisor Required: No Allergies No Known Allergies [No Known Allergies*] Allergy (Verified 03/20/24 14:19) HPI Comments Details: 03/20/24-- FU post hospital admission for gross hematuria, pt was placed on CBI. here for outpatient cysto h/o prostate cancer s/p radical prostatectomy had fu radiation due to increase in PSA was started on eliquis due to DVT in arm CTAP - bilateral kidney stones, hyper dense material in bladder Cystoscopy findings: prominent varies in bladder c/w radiation cystitis Kidney stones, diet sheet, 24 hr urin KUB and renal US [facility] Medical History (Updated 03/21/24 @ 00:03 by Gloria Lim) Prostate cancer Social History Patient Tobacco Use Status: Never used Tobacco service: No Review of Systems Const All systems reviewed & are unremarkable except as noted in HPI and below Reports no additional complaints Eyes Reports no additional complaints ENT Reports no additional complaints Card Reports no additional complaints Resp Reports no additional complaints GI Reports no additional complaints Reports as per HPI Musc Reports no additional complaints Skin/Breast Reports system reviewed and no additional complaints, except as documented Neuro Reports no additional complaints Psych Reports no additional complaints Endo Reports no additional complaints Daniel/Lymph Reports no additional complaints Aller/Immun Reports no additional complaints Office Procedures Cystoscopy Consent Discussed risk and benefit or proposed procedure with the patient. Information consent for procedure given to the patient. Discussed technical aspects, risks, benefits and alternatives in full. Addressed all of the patient's questions and concerns regarding the procedure. The patient demonstrated knowledge and understanding. They wish to proceed with this procedure. Preparation The patient was prepped in the usual manner. A salvage determiner was present and in the room. Genitalia was prepped with betadine solution in a sterile manner. Lidocaine Jelly 2% was placed into the urethra and 16Fr flexible Olympus cystoscope was inserted into the meatus after adequate lubrication. Procedure Time out per protocol performed. Bladder Inspection Bladder Inspection: The bladder was inspected in its entirety with utilization retroflexion displaying: Tumor(s): no suspicious bladder lesions visualized Trabeculation: Mild Mucosal Erthema: prominent vascularities, c/w radiation cystitis Orifices: normal shape and position Urethra: normal Cystoscopy findings: prominent vasculature, c/w radiation cystitis bulbous urethra WNL, no suspicious bladder lesions visualized [id number] DISPOSABLE SCOPE URO-G FLEXIBLE SCOPE Procedure code (CPT) selection complete Office Meds lidocaine HCl 2 % mucosal jelly in applicator Performing Provider: Jason Bey MD Performing Location: [facility] Documented (not given) by: Jason Bey MD on 03/20/24 16:47 Dose Route Admin Location Dispensed Lot Number Expiration Date ND [employer]st 10 mL intra-urethral mL naproxen 500 mg tablet Performing Provider: Jason Bey MD Performing Location: [facility] Documented (not given) by: Jason Bey MD on 03/20/24 16:47 Dose Route Admin Location Dispensed Lot Number Expiration Date NDC [employer]st 500 mg PO tab ciprofloxacin HCl 500 mg tablet Performing Provider: Jason Bey MD Performing Location: [facility] Documented (not given) by: Jason Bey MD on 03/20/24 16:47 Dose Route Admin Location Dispensed Lot Number Expiration Date NDC [employer]st 500 mg PO tab Results AMB Urinalysis, Automated UA Leukoctes 0 Magen/uL Last Edit by LUZ MARIA Bailon on 03/20/24 14:30 UA Nitrite Last Edit by LUZ MARIA Bailon on 03/20/24 14:30 UA Urobilinogen 3.5 mg/dL Last Edit by LUZ MARIA Bailon on 03/20/24 14:30 UA Protein 15 mg/dL Last Edit by LUZ MARIA Bailon on 03/20/24 14:30 UA pH 6.0 Last Edit by LUZ MARIA Bailon on 03/20/24 14:30 UA Blood 200 Nacho/uL Last Edit by LUZ MARIA Bailon on 03/20/24 14:30 UA Specific Means 1.020 Last Edit by LUZ MARIA Bailon on 03/20/24 14:30 UA Ketone Negative Last Edit by LUZ MARIA Bailon on 03/20/24 14:30 UA Bilirubin 0 mg/dL Last Edit by LUZ MARIA Bailon on 03/20/24 14:30 UA Glucose 0 mg/dL Last Edit by LUZ MARIA Bailon on 03/20/24 14:30 Results Reviewed Results Reviewed: Laboratory Last Values Urine pH (Auto) 6.0 03/20/24 14:28 Specific Means (Auto) 1.020 03/20/24 14:28 Urine Protein (Auto) 15 mg/dL 03/20/24 14:28 Glucose (UA)(Auto) 0 mg/dL 03/20/24 14:28 Urine Ketones (Auto) Negative 03/20/24 14:28 Urine Blood (Auto) 200 Nacho/uL 03/20/24 14:28 Urine Bilirubin (Auto) 0 mg/dL 03/20/24 14:28 Urine Urobilinogen (Auto) 3.5 mg/dL 03/20/24 14:28 Leukocyte Esterase (Auto) 0 Magen/uL 03/20/24 14:28 Assessment & Plan Assessment & Plan (1) Gross hematuria: Code(s): R31.0 - Gross hematuria Category: Medical (2) Bilateral kidney stones: Code(s): N20.0 - Calculus of kidney Category: Medical Plan Gross hematuria resolved, cystoscopy findings consistent with radiation cystitis. Kidney stones, diet sheet, 24 hr urin KUB and renal US Orders: Orders AMB Urinalysis Automated 03/20/24 Z13.9 - Encounter for screening, unspecified AMB Cystoscopy 03/20/24 R31.0 - Gross hematuria XR KUB 2 Months N20.0 - Calculus of kidney US renal BI 2 Months N20.0 - Calculus of kidney Medications: New lidocaine HCl 2% 10 mL intra-urethral ONCE 10 mL 0RF R31.0 - Gross hematuria naproxen 500 mg PO ONCE 1 tab 0RF R31.0 - Gross hematuria ciprofloxacin HCl 500 mg PO ONCE 1 tab 0RF R31.0 - Gross hematuria Coding Level of Care Code Est Pt Level 3 (92886) Diagnoses Gross hematuria R31.0 Bilateral kidney stones N20.0 CPT Codes Cystoscopy - CPT: 75318-[id number] ([id number])
== END 2024-03-20 16:00 | disposition home or self-care (01) ==
PROVIDERS: PCP Physician Assistant Medical; Visit Provider Urology
DX: R31.0 Gross hematuria (principal); N20.0 Calculus of kidney
CPT/HCPCS: 52000; 99213

== ENCOUNTER → 2024-03-20 14:16 | Outpatient (BNVA) | payer MEDICARE, SELFPAY | PROVIDERS: PCP Physician Assistant Medical; Visit Provider Urology | DX: R31.0 Gross hematuria (principal); N20.0 Calculus of kidney | CPT/HCPCS: 52000; 81003; 99212 ==

== ENCOUNTER 2024-04-15 10:24 | Emergency (ER) | payer MEDICARE, SELFPAY ==
[2024-04-15 10:49] VITALS: BP 120/78; PULSE 84; RESP 18; TEMP 36.9; O2SAT 96; BMI 30.3
--- NOTE | 2024-04-15 10:53 | ED_ITS ---
HPI - Male Genitourinary General Chief complaint: Urogenital-Male Stated complaint: blood in urine Related Data Home Medications ?Medication ?Instructions ?Recorded ?Confirmed ascorbic acid (vitamin C) 500 mg 500 mg PO DAILY 03/12/24 03/12/24 tablet (Vitamin C) multivitamin 1 tab PO DAILY 03/12/24 03/12/24 venlafaxine 37.5 mg 112.5 mg PO DAILY 03/12/24 03/12/24 capsule,extended release 24 hr Previous Rx's ?Medication ?Instructions ?Recorded sodium phosphates 19 gram-7 118 ml AR BID constipation 1 day 03/16/24 gram/118 mL enema (Fleet Enema) #266 mL Allergies Allergy/AdvReac Type Severity Reaction Status Date / Time No Known Allergies Allergy Verified 04/15/24 10:51 [No Known Allergies*] [facility] Past Medical History Medical History (Updated 04/16/24 @ 00:02 by Gloria Lim) Prostate cancer Social History Social History Patient Tobacco Use Status: Never used Tobacco Advance Directives: No Advance Directives Information Provided: Yes service: No Physical Exam 2 Vital Signs: Vital Signs: Last Vital Signs Temp 98.4 F 04/15/24 10:49 Pulse 84 04/15/24 10:49 Resp 18 04/15/24 10:49 BP 120/78 04/15/24 10:49 Pulse Ox 96 04/15/24 10:49 O2 Del Method Room Air 04/15/24 10:49 BMI result Body Mass Index 30.3 Course Course Course Narrative: This is a rapid medical exam performed by Monica Melendez NP: Additional HPI, ROS, PE not included below will be deferred to primary provider. Patient is a 78 y/o M presenting with painless hematuria, seen here last week for same. Hx of prostate CA , recent outpatient cysto, on Eliquis for upper extremity DVT. Plan: UA, labs Reevaluation(s) Reevaluation #1: The patient left the emergency department after triage and a brief review by the nurse practitioner but did not stay for a complete evaluation. I did not see this patient. Medical Decision Making Lab Data 04/15/24 12:41 04/15/24 12:41 Labs: Lab Results 04/15/24 04/15/24 Range/Units 12:41 12:43 WBC 4.9 (4.8-10.8) X10*3/uL RBC 4.20 L (4.60-5.80) X10*6/uL Hgb 13.6 L (14.0-18.0) g/dl Hct 39.4 L (42.0-52.0) % MCV 93.8 (80.0-98.0) fL MCH 32.4 (27.0-33.0) pg MCHC 34.5 (31.0-36.0) g/dl RDW 13.5 (11.0-16.0) % Plt Count 195 D (160-400) X10*3/uL MPV 8.9 L (9.4-12.4) fL Immature Gran % (Auto) 0.2 (0.0-0.4) % Neut % (Auto) 63.7 (45-73) % Lymph % (Auto) 20.9 (20-40) % [place] % (Auto) 9.3 (2-11) % Eos % (Auto) 5.1 H (0-4) % Baso % (Auto) 0.8 (0-2) % Lymph # (Auto) 1.0 L (1.2-4.9) X10*3/uL [place] # (Auto) 0.5 (0.1-1.2) X10*3/uL Eos # (Auto) 0.3 (0.0-0.4) X10*3/uL Baso # (Auto) 0.0 (0.0-0.2) X10*3/uL Abs Immat Gran (auto) 0.01 (0.00-0.03) X10*3/uL Absolute Neuts (auto) 3.1 (2.0-8.3) x10*3/uL Absolute Nucleated RBC 0.000 (0.0-0.012) X10*3/uL Nucleated RBC % (auto) 0.0 (0.0-0.2) /100WBC PT 13.2 H (10.9-12.4) SEC INR 1.1 (0.9-1.1) Sodium 142 (135-145) mmol/L Potassium 3.8 (3.3-5.1) mmol/L Chloride 107 (96-108) mmol/L Carbon Dioxide 29 (22-29) mmol/L Anion Gap 10 L (12-20) BUN 20 H (9-16) mg/dL Creatinine 0.83 (0.5-1.4) mg/dL Estim Creat Clear Calc 73.8 Estimated GFR > 60 Random Glucose 104 (60-115) mg/dL Calcium 9.4 D (8.4-10.2) mg/dL Total Bilirubin 0.3 (0.0-1.0) mg/dL AST 28 (5-37) U/L ALT 23 (0-40) U/L Alkaline Phosphatase 92 (39-117) U/L Total Protein 6.6 (6.5-8.0) g/dL Albumin 3.6 (3.5-5.0) g/dL Urine Color Yellow Urine Appearance Clear Urine pH 7.0 (5.0-9.0) Ur Specific [place] 1.020 (1.005-1.025) Urine Protein Negative (Neg-Trace) mg/dL Urine Glucose (UA) Negative (Negative) mg/dL Urine Ketones Negative (Negative) mg/dL Urine Blood Small (1+) H (Negative) Urine Nitrite Negative (Negative) Ur Leukocyte Esterase Negative (Negative) Urine RBC 11-20 H (0-2) /HPF Urine WBC 0-5 (0-5) /HPF Ur Squamous Epith Cells 0-2 (0-2) /HPF Urine Bacteria None Seen (None Seen) Hyaline Casts 0-2 (0-2) /LPF Discharge Plan Discharge Clinical Impression: Diagnosis unknown Patient Disposition: Left W/O Completing Treatment Prescriptions: No Action Fleet Enema 19-7 gram/118 mL enema 118 ml AR BID 1 Days Qty: 266 0RF Rx Instructions: Take 1 enema the night before the procedure, and the second enema the morning of the procedure. venlafaxine 37.5 mg capsule,extended release 24hr 112.5 mg PO DAILY multivitamin Tablet 1 tab PO DAILY ascorbic acid (vitamin C) [Vitamin C] 500 mg Tablet 500 mg PO DAILY ciprofloxacin HCl 500 mg tablet 500 mg PO ONCE Qty: 1 0RF naproxen 500 mg tablet 500 mg PO ONCE Qty: 1 0RF lidocaine HCl 2 % jelly in applicator 10 ml intra-urethral ONCE Qty: 10 0RF Discharge Date/Time: 04/15/24 17:42
[2024-04-15 12:46] LABS: MANUAL DIFF FLAG NO
[2024-04-15 12:48] LABS: Basophils Percent Auto 0.8 % (0-2); Eosinophils Absolute Auto 0.3 X10*3/uL (0.0-0.4); Eosinophils Percent Auto 5.1 % (0-4); Hematocrit 39.4 % (42.0-52.0); Hemoglobin 13.6 g/dl (14.0-18.0); Imm Gran Abs Auto 0.01 X10*3/uL (0.00-0.03); Imm Gran Pct Auto 0.2 % (0.0-0.4); Lymphocytes Percent Auto 20.9 % (20-40); Mean Corpuscular HGB Conc 34.5 g/dl (31.0-36.0); Mean Corpuscular Hemoglobin 32.4 pg (27.0-33.0); Mean Corpuscular Volume 93.8 fL (80.0-98.0); Mean Platelet Volume 8.9 fL (9.4-12.4); Monocytes Absolute Auto 0.5 X10*3/uL (0.1-1.2); Monocytes Percent Auto 9.3 % (2-11); Neutrophils Absolute Auto 3.1 x10*3/uL (2.0-8.3); Neutrophils Percent Auto 63.7 % (45-73); Platelet Count 195 X10*3/uL (160-400); Red Cell Distribution Width 13.5 % (11.0-16.0); White Blood Count 4.9 X10*3/uL (4.8-10.8)
[2024-04-15 12:49] LABS: Appearance Urine Clear; Color Urine Yellow; Glucose Urine UA Negative (Negative); Leukocyte Esterase Urine Negative (Negative); Nitrite Urine Negative (Negative); UMIC TRIGGER UACC YES; Urine Blood Small (1+) (Negative); Urine Ketones Negative (Negative); Urine Protein Negative (Neg-Trace)
[2024-04-15 12:51] LABS: Bacteria Urine None Seen (None Seen); Hyaline Casts Urine 0-2 /LPF (0-2); Squamous Epithelial Cell Urine 0-2 /HPF (0-2); WBC Urine 0-5 /HPF (0-5)
[2024-04-15 12:53] LABS: INTERNATIONAL NORM RATIO 1.1 (0.9-1.1); Prothrombin Time 13.2 SEC (10.9-12.4)
[2024-04-15 13:02] LABS: Alanine Aminotransferase 23 U/L (0-40); Albumin Level 3.6 g/dL (3.5-5.0); Alkaline Phosphatase 92 U/L (39-117); Anion Gap 10 (12-20); Aspartate Amino Transferase 28 U/L (5-37); Bilirubin Total 0.3 mg/dL (0.0-1.0); Blood Urea Nitrogen 20 mg/dL (9-16); Calcium 9.4 mg/dL (8.4-10.2); Carbon Dioxide 29 mmol/L (22-29); Chloride 107 mmol/L (96-108); Creatinine Clr Calc Pharmacy 73.8; Estimated Glomerular Filt Rate > 60; Glucose Random 104 mg/dL (60-115); Potassium 3.8 mmol/L (3.3-5.1); Sodium 142 mmol/L (135-145); Total Protein 6.6 g/dL (6.5-8.0)
--- OUTSIDE RECORDS SUMMARY | 2024-04-16 00:24 | XMS_ITS ---
Author Organization [facility] Address [address] [place] [address] Care Team Providers Care Commercial Drafter Name Role Phone Donaldo Min Primary Care Provider Unav ailable Ac Duron Unavailable [phone] REASON FOR VISIT Buy Lg get toe Spread/Betadine Encounters Encounter Location Date Provider Diagnosis [facility] [address] [place] [address] 07/29/2023 Ac Duron Plan Of Treatment No Information Progress Notes * Jenaro ESPAÑA CDOB:[birth year] (78 yo M)Acc No.[id number]:07/29/2023 Patient:?Patria Jenaro Herrera :1945???Age:78 Y???Sex:Male Address:[address] [place] [address] * true * Date:? Generated for Addisoni sydney/Fabryong/eTransmitting on:?04/16/2024 12:24 AM EST
--- OUTSIDE RECORDS SUMMARY | 2024-04-16 00:24 | XMS_ITS | Patient Health Record ---
Author Organization [facility] [place] Address [address] [place] [address] Care Team Providers Care Senior Attorney Name Role Phone Donaldo Min Primary Care Provider Unaronen Ac Woods Unavailable [phone] Allergies No Known Allergies Reason For Referral No Information Medications Medication SIG (Take, Route, Frequency, Duration) Notes Start Date End Date Status Orgovyx 120 MG Oral for 30 Days Active Venlafaxine HCl ER 75 MG TAKE 1 CAPSULE BY MOUTH EVERY DAY Oral for 90 Days Active Albuterol Sulfate HFA 108 (90 Base) MCG/ACT TAKE 2 PUFFS BY MOUTH EVERY 6 HOURS NEEDED Inhalation for 25 Days Active Sulfamethoxazole-Trimethopr im 800-160 MG TAKE 1 TABLET BY MOUTH TWICE A DAY FOR 7 DAYS Oral for 7 Days Active predniSONE 5 MG Oral for 90 Days Active Abiraterone Acetate 250 MG Oral for 30 Days Active Social History Tobacco Use: Social History Observation Description Date Details (start date - stop date) Never Smoker NA - NA Tobacco Use/Smoking Question Answer Notes Are you a: nonsmoker Additional Findings: Tobacco Non-User Current no n-smoker Alcohol Screen Question Answer Notes Did you have a drink containing alcohol in the p ast year? No Points 0 Interpretation Negative Tobacco use other than smoking: Question Answer Notes Are you an other tobacco user? No Problems Problem Type SNOMED Code ICD Code Onset Dates Problem Status W/U Status Risk Notes Problem Acquired hallux rigidus (0107058) Hallux rigidus, left foot (M20.22) Active confirmed Problem Non-pressure chronic ulcer of other part of left foot limited to breakdown of skin (L97.521) Active confirmed Problem Acquired hammer toe of right foot (7519151721185 105) Other hammer toe(s) (acquired), right foot (M20.41) Active confirmed Problem Acquired hammer toe of left foot (1687767493388 103) Other hammer toe(s) (acquired), left foot (M20.42) Active confirmed Problem Acquired hallux rigidus (0040875) Hallux rigidus, right foot (M20.21) Active confirmed Vital Signs Height 5 ft 7 in in 08/05/2023 Weight 174 lbs 08/05/2023 BMI 27.25 kg/m2 08/05/2023 Encounters Encounter Location Date Provider Diagnosis [address] [address] 07/29/2023 Ac Duron Pain in left toe(s) M79.675 ; Pain in right toe(s) M79.674 ; Other hammer toe(s) (acquired), right foot M20.41 ; Other hammer toe(s) (acquired), left foot M20.42 ; Non-pressure chronic ulcer of other part of left foot limited to breakdown of skin L97.521 ; Hallux rigidus, left foot M20.22 and Hallux rigidus, right foot M20.[address] [address] 08/05/2023 Ac Duron Pain in right toe(s) M79.674 ; Pain in left toe(s) M79.675 ; Other hammer toe(s) (acquired), right foot M20.41 ; Other hammer toe(s) (acquired), left foot M20.42 ; Non-pressure chronic ulcer of other part of left foot limited to breakdown of skin L97.521 ; Hallux rigidus, left foot M20.22 and Hallux rigidus, right foot M20.[address] [address] 07/29/2023 Ac Duron Assessments Encounter Date Diagnosis (ICD Code) Assessment Notes Treatment Notes Treatment Clinical Notes Section Notes 07/29/2023 Pain in right toe(s) (ICD-10 - M79.674) 07/29/2023 Pain in left toe(s) (ICD-10 - M79.675) 08/05/2023 Pain in right toe(s) (ICD-10 - M79.674) 08/05/2023 Pain in left toe(s) (ICD-10 - M79.675) 07/29/2023 Other hammer toe(s) (acquired), right foot (ICD-10 - M20.41) 08/05/2023 Other hammer toe(s) (acquired), right foot (ICD-10 - M20.41) 08/05/2023 Other hammer toe(s) (acquired), left foot (ICD-10 - M20.42) 07/29/2023 Other hammer toe(s) (acquired), left foot (ICD-10 - M20.42) 07/29/2023 Non-pressure chronic ulcer of other part of left foot limited to breakdown of skin (ICD-10 - L97.521) 08/05/2023 Non-pressure chronic ulcer of other part of left foot limited to breakdown of skin (ICD-10 - L97.521) 08/05/2023 Hallux rigidus, left foot (ICD-10 - M20.22) 07/29/2023 Hallux rigidus, left foot (ICD-10 - M20.22) 07/29/2023 Hallux rigidus, right foot (ICD-10 - M20.21) 08/05/2023 Hallux rigidus, right foot (ICD-10 - M20.21) Plan Of Treatment Pending Test Test Name Order Date X ray : Foot, left 3V 07/29/2023 X ray : Foot, right 3V 07/29/2023 Insurance Providers Payer Name Payer Address Payer Phone Subscriber Number Group Number Insured Name Patient Relationship to Insured Coverage Start Date Coverage End Date Medicare National [employer] [address] [place] [address] [id number] Jenaro España Self - patient is the insured [id number] [address] [place] [address] [phone] [id number] Jenaro España Self - patient is the insured Medical (General) History Medical History History ICD Code Cancer Surgical History Surgery Date(Month/Year) shoulder replacement 04/2023
--- OUTSIDE RECORDS SUMMARY | 2024-04-16 00:24 | XMS_ITS ---
Author Organization [facility] Ursula dolores [place] Address [address] [facility] [place] [address] Care Team Providers Care Flat Examiner Name Role Phone Donaldo Min Primary Care Provider Unav Ac Woods Unavailable [phone] Social History Tobacco Use: Social History Observation Description Date Details (start date - stop date) Never Smoker NA - NA Tobacco Use/Smoking Question Answer Notes Are you a: nonsmoker Additional Findings: Tobacco Non-User Current no n-smoker Alcohol Screen Question Answer Notes Did you have a drink containing alcohol in the p ast year? No Points 0 Interpretation Negative Vital Signs Height 5 ft 6 in in 07/30/2023 Weight 172 lbs lbs 07/30/2023 BMI 27.76 kg/m2 07/30/2023 Encounters Encounter Location Date Provider Diagnosis [address] [address] 07/30/2023 Ac Duron Plan Of Treatment No Information Progress Notes * Jenaro ESPAÑA CDOB:[birth year] (78 yo M)Acc No.[id number]:07/30/2023 Progress Notes Patient:?Jenaro ESPAÑA Provider:?Ac Duron DPM :1945???Age:78 Y???Sex:Male Gerson e:07/30/2023 Address:[address] [facility] [place] Pcp:BRYAN Siddiqi Subjective: * Chief Complaints: * ??? * ROS:?General/Constitutional:?Nausea?denies.?Vomiting?denies.?Hunger Thirst?denies.?Loss appetite?denies.?Chills?denies.?Fatigue?, admits.?Fever?denies.?Night Sweats?, admits.?Unexplained weight loss?denies.?Unexplained weight gain?denies.?HEENTM:?Dentures?denies.?Dizziness?denies.?Glasses/contacts?, admits.?Retinopathy?denies.?Blurred/double vision?denies.?TMJ?denies.?Discharge/drainage?denies.?Implants?denies.?Sore throat denies.?Dental implants?denies.?Hard of hearing ?denies.?Difficulty chewing/swallowing/speaking?denies.?Nose bleeds?denies.?Sore mouth?denies.?Respiratory:?On Oxygen?denies.?Pneumonia/pleurisy?denies.?Bronchitis?denies.?Emphysema?denies.?C oughing?denies.?Cough blood?denies.?Shortness of breath?admits.?Wheezing?denies.?Cardiovascular:?Pacemaker?denies.?MVP?denies.?WPW?denies.?CHF?denies.?Heart attack?denies.?Septal defect?denies.?Rapid beat?denies.?Chest pain ?denies.?Atrial Fib.?denies.?Murmur/Palpitations?denies.?Gastrointestinal:?Hemorrhoids?denies.?Stomach/Abdominal pain?denies.?Dark blood stool?denies.?Irritable bowel ?denies.?Constipation?denies.?Diarrhea?denies.?Hematology:?Swelling?denies.?Clots?denies.?Varicose Veins?denies.?Bruising?denies.?Bleeding problem?denies.?Genitourinary:?Blood urine?denies.?Frequent/Painfu/urination/bladder control?denies.?Kidney stones?denies.?Infection (UTI)?denies.?Nephropathy?denies.?sex trans dis (STD)?denies.?Prostate?admits.?Musculoskeletal:?Hammertoes?denies.?Bunions?denies.?Back Pain?denies.?Muscle Cramps/ Resting?denies.?Muscle cramps / walking?denies.?Generalized aches and pains?denies.?Weakness?denies.?Integ.:?Griffith?denies.?Scars?denies.?Corns/calluses?denies.?Ingrown nails?denies.?Painful nails?denies.?Open Sores?denies.?Rashes?denies.?Neurologic:?Difficulty sleeping?denies.?Brain disorder?denies.?Numbness?denies.?Balance trouble?denies.?Confusion?denies.?Fainting/blackouts?denies.?Tingling?denies.?Tr emors?denies.? * Medical History:?Cancer. * Family History:?Mother: diag nosed with Other malignant neoplasm of unspecified site.? * Social History:?Tobacco Use:?Tobacco Use/Smoking?Are you a:?nonsmoker ?Additional Findings: Tobacco Non-User?Current non-smoker ???Drugs/Alcohol:?Drugs?Have you used drugs other than those for medical reasons in the past 12 months??No ?Alcohol Screen?Did you have a drink containing alcohol in the past year??No ?Points?0 ?Interpretation?Negative ???Miscellaneous:?Caffeine: yes. 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 Objective: * Vitals:?Ht: 5 ft 6 in, Wt: 1 72 lbs, BMI: 27.76, Shoe size: 9.5 Wide, Ht-cm: 167.64 cm, Wt-k.02 kg. Assessment: Plan: * Treatment: * Images: * The named appointment provid er may or may not be the originator of this progress note, and it is not deemed complete until electronically signed by the appointment provider. Sign off status: Pending * Provider:?Ac Duron DPM Date:? 024 Generated for Pablo grimes/Pricilla/Saul on:?04/16/2024 12:24 AM EST
--- OUTSIDE RECORDS SUMMARY | 2024-04-16 00:24 | XMS_ITS ---
[facility] Cyndy [facility] Address [address] [place] [address] Care Team Providers Care Teaching Pastor Name Role Phone Donaldo Min Primary Care Provider Unav ailable Ac Duron Unavailable [phone] Allergies No Known Allergies Medications Medication SIG (Take, Route, Frequency, Duration) Notes Start Date End Date Status Orgovyx 120 MG Oral for 30 Days Active Venlafaxine HCl ER 75 MG TAKE 1 CAPSULE BY MOUTH EVERY DAY Oral for 90 Days Active Albuterol Sulfate HFA 108 (90 Base) MCG/ACT TAKE 2 PUFFS BY MOUTH EVERY 6 HOURS NEEDED Inhalation for 25 Days Active predniSONE 5 MG Oral for 90 Days Active Abiraterone Acetate 250 MG Oral for 30 Days Active Sulfamethoxazole-Trimethopr im 800-160 MG TAKE 1 TABLET BY MOUTH TWICE A DAY FOR 7 DAYS Oral for 7 Days Active Social History Tobacco Use: Social [...] Are you an other tobacco user? 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.521 ; Hallux rigidus, left foot M20.22 and Hallux rigidus, right foot M20.21 Assessments Encounter Date Diagnosis (ICD Code) Assessment Notes Treatment Notes Treatment Clinical Notes Section Notes 08/05/2023 Pain in right toe(s) (ICD-10 - M79.674) 08/05/2023 Pain in left toe(s) (ICD-10 - M79.675) 08/05/2023 Other hammer toe(s) (acquired), right foot (ICD-10 - M20.41) 08/05/2023 Other hammer toe(s) (acquired), left foot (ICD-10 - M20.42) 08/05/2023 Non-pressure chronic ulcer of other part of left foot limited to breakdown of skin (ICD-10 - L97.521) 08/05/2023 Hallux rigidus, left foot (ICD-10 - M20.22) 08/05/2023 Hallux rigidus, right foot (ICD-10 - M20.21) Plan Of Treatment Next Appt Details Follow Up: prn, Reason: Progress Notes * Jenaro ESPAÑA CDOB:[birth year] (78 yo M)Acc No.[id number]:08/05/2023 Progress Notes Patient:?Patria Jenaro Herrera Provider:?Ac Duron DPM :1945???Age:78 Y???Sex:Male Gerson e:08/05/2023 Address:[address] [place] [address] Pcp:BRYAN Siddiqi Subjective: * Chief Complaints: * ??? * HPI: ???Toe pain:?Nature:?tenderness, aching, swelling.?Location:?2nd toe, B/L feet, 4th toe, 5th toe, Left foot.?Duration:?several months.?Onset/Cause:?unknown.?Course:?improved.?Aggrevated by:?any pressure, shoes, standing/walking.? * Medical History:? * Surgical History:?shoulder r eplacement 04/2023 * Hospitalization/Major Diagno stic Procedure:?Denies Past Hospitalization * Family History:?Mother: diag nosed with Other malignant neoplasm of unspecified site.? * Social History:?Tobacco Use:?Tobacco Use/Smoking?Are you a:?nonsmoker ?Additional Findings: Tobacco Non-User?Current non-smoker ?Tobacco use other than smoking?Are you an other tobacco user??No ???Drugs/Alcohol:?Drugs?Have you used drugs other than those for medical reasons in the past 12 months??No ?Alcohol Screen?Did you have a drink containing alcohol in the past year??No ?Points?0 ?Interpretation?Negative ???Miscellaneous:?Caffeine: yes. ?no Exercise. 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 * Medications:?TakingSulfameth oxazole-Trimethoprim 800-160 MG Tablet TAKE 1 TABLET BY MOUTH TWICE A DAY FOR 7 DAYS Oral predniSONE 5 MG Tablet Oral Abiraterone Acetate 250 MG Tablet Oral Orgovyx 120 MG Tablet Oral Venlafaxine HCl ER 75 MG Capsule Extended Release 24 Hour TAKE 1 CAPSULE BY MOUTH EVERY DAY Oral Albuterol Sulfate HFA 108 (90 Base) MCG/ACT Aerosol Solution TAKE 2 PUFFS BY MOUTH EVERY 6 HOURS NEEDED Inhalation Medication List reviewed and reconciled with the patientTaking Sulfamethoxazole-Trimethoprim 800-160 MG Tablet TAKE 1 TABLET BY MOUTH TWICE A DAY FOR 7 DAYS Oral Taking predniSONE 5 MG Tablet Oral Taking Abiraterone Acetate 250 MG Tablet Oral Taking Orgovyx 120 MG Tablet Oral Taking Venlafaxine HCl ER 75 MG Capsule Extended Release 24 Hour TAKE 1 CAPSULE BY MOUTH EVERY DAY Oral Taking Albuterol Sulfate HFA 108 (90 Base) MCG/ACT Aerosol Solution TAKE 2 PUFFS BY MOUTH EVERY 6 HOURS NEEDED Inhalation Medication List reviewed and reconciled with the patient * Allergies:?N.K.D.A.yes[Aller gies Verified] Objective: * Vitals:?Ht: 5 ft 7 in, Wt:17 4, BMI:27.25, Shoe size:9.5W. * Examination: ???General Examination: ?GENERAL APPEARANCE:?pleasant, alert, well nourished, well developed, well hydrated, with good attention to hygene/body habitus, and in no acute distress.?ORIENTED:?person,place, and time.?Neurological: ?SENSORY:?Neurological exam reveals intact sensorium, pain sensation normal, vibration sensation intact, pinprick sensation is normal in the lower extremities, Pt denies, anesthesia, burning, paresthesia, tingling, B/L.?BABINSKI REFLEX:?absent.?Vascular: ?DP PULSES:? 1/4, B/L.?PT PULSES:?2/4, B/L.?CAPILLARY FILL TIME:?3 secs. per digit, B/L.?SKIN TEMPERTURE GRADIENT OF THE LOWER EXTERMITIES:?warm to cool, proximal to distal, B/L.?HAIR GROWTH/TEXTURE/ELASTICITY/TURGOR:?normal, B/L.?PIGMENTATION:?normal, B/L.?EDEMA:?no edema, B/L.?TELANGECTASIA:?absent.?VARICOSITIES:?absent.?Dermatologic: ?SKIN FINDINGS:?Skin exam reveals normal texture, elasticity, and tugor. There are no masses. The interspaces are clear.?ULCER:? LOCATION--medial t4, SIZE, 3mm X 2mm X 1mm, BASE, fibrogranular, RIM, hyperkeratotic, UNDERMINING, absent, TRACKING, Full thickness breakdown of skin,NECROTIC TISSUE, loosely-adherent,yellow slough DRAINAGE, serous, mild, MALODOR, absent, CALOR, absent, ERYTHEMA, absent, PAIN ON PALPATION, present.?Orthopedic: ?MUSCLE STRENGTH:?5/5 all groups in a symmetrical fashion , B/L.?GAIT ABNORMALITY:?pronated, abducted, B/L.?DIGITAL DEFORMITIES:? Digital contracture, PIPJ, 2-5 B/L, incompl- reducible with WB, or to push-up test, no over, nor underlapping.? Assessment: * Assessment: 1.?Pain in right toe(s) - M7 9.674?2.?Pain in left toe(s) - M79.675 (Primary)?3.?Other hammer toe(s) (acquired), right foot - M20.41?4.?Other hammer toe(s) (acquired), left foot - M20.42?5.?Non-pressure chronic ulcer of other part of left foot limited to breakdown of skin - L97.521?6.?Hallux rigidus, left foot - M20.22?7.?Hallux rigidus, right foot - M20.21? Plan: * Treatment: * Procedure Codes:? * Preventive Medicine:? ??Counseling:?Discussion:?-13: Office or other outpatient visit for the evaluation and management of an established patient, which required a medically appropriate history and/or examination and LOW level of DECISION MAKING for: 1 STABLE ACUTE UNCOMPLICATED PROBLEM, 2 OR MORE MINOR PROBLEMS, OR 1 STABLE CHRONIC PROBLEM, THAT POSE(S) A LOW RISK FOR MORBIDITY/MORTALITY. The visit on the day of the encounter encompassed interpreting the data and educating the patient as to the nature of their condition, treatment options available according to their individual PMH, meds, allergies, and overall health/living conditions, as well as any potential risks or complications that may occur from a failure to adhere to, and participate in, the recommended course of therapy. The discussion included a complete verbal, and/or written explanation of the examination results, any x-rays taken, the proposed diagnosis, and outline of the treatment plan. A schedule for future care needs was also explained. The patient verbalized an understanding of the instructions at this time and agreed to be an active participant in their treatment. If the patient should think of any questions or concerns after the visit, I have encouraged the patient to call the office--cotniue with betadine and protective gauze or cotton btw t3/t4 to prevent recurrence.? * Follow Up:?prn * Images: * Sign off status: Completed true * Provider:?Ac Duron DPM Date:? 024 Generated for Pablo grimes/Pricilla/Saul on:?04/16/2024 12:23 AM EST History and Physical Notes * HPI (History of Present Illness) Category Sub-Category Detail Notes Category Not es Toe pain Nature: tenderness, aching, swelling Location: 2nd toe, B/L feet, 4 th toe, 5th toe, Left foot Duration: several months Onset/Cause: unknown Course: improved Aggravated by: any pressure, shoes, standing/walking Examination Category Sub-Category Detail Notes Category Not es Neurological SENSORY: Neurological exa m reveals intact sensorium, pain sensation normal, vibration sensation intact, pinprick sensation is normal in the lower extremities, Pt denies, anesthesia, burning, paresthesia, tingling, B/L BABINSKI REFLEX: absent Dermatologic SKIN FINDINGS: Skin exam reveal s normal texture, elasticity, and tugor. There are no masses. The interspaces are clear ULCER: LOCATION--medial t4, SIZE, 3mm X 2mm X 1mm, BASE, fibrogranular, RIM, hyperkeratotic, UNDERMINING, absent, TRACKING, Full thickness breakdown of skin,NECROTIC TISSUE, loosely-adherent,yellow slough DRAINAGE, serous, mild, MALODOR, absent, CALOR, absent, ERYTHEMA, absent, PAIN ON PALPATION, present Orthopedic GAIT ABNORMALITY: pronated, abducted, B/L DIGITAL DEFORMITIES: Digital contracture , PIPJ, 2-5 B/L, incompl-reducible with WB, or to push-up test, no over, nor underlapping MUSCLE STRENGTH: 5/5 all groups in a symmetrical fashion , B/L General Examination GENERAL APPEARANCE: pleasant , alert, well nourished, well developed, well hydrated, with good attention to hygene/body habitus, and in no acute distress ORIENTED: person,place, and ti me Vascular DP PULSES(B): 1/4, B/L PT PULSES(B): 2/4, B/L CAPILLARY FILL TIME: 3 secs. per digit, B/L TEMPERTURE GRADIENT(C): warm to cool, pr oximal to distal, B/L TROPHIC CONDITION-TEXTURE/ELASTICITY/TURGOR/HAIR GROWTH(B): normal, B/L EDEMA(C): no edema, B/L TELANGECTASIA: absent VARICOSITIES: absent PIGMENTATION: normal, B/L
== END 2024-04-15 17:42 | disposition left against medical advice (07) ==
PROVIDERS: Emergency Provider Emergency Medicine; PCP Physician Assistant Medical
DX: R31.9 Hematuria, unspecified (principal); Z85.46 Personal history of malignant neoplasm of prostate; Z86.718 Personal history of other venous thrombosis and embolism; Z79.01 Long term (current) use of anticoagulants; Z79.899 Other long term (current) drug therapy
CPT/HCPCS: 36415; 80053; 81001; 85025; 85610; 99282; 99283